=== PATIENT | male | born 1950 | race Caucasian/White ===

== ENCOUNTER 2024-08-21 14:19 | Outpatient (OUT) | payer MEDICARE, SELFPAY ==
--- NOTE | 2024-08-21 14:25 | CA_ITS ---
Patient Name: NELY MARY MR#: [id number] : 1950 Exam Date: 08/21/2024 Ordering Doctor: DR VINITA GUTIERREZ M.D. ECHOCARDIOGRAM REPORT PROCEDURE: CA ECHO DOPPLER COMPLETE INDICATIONS: Raynaud's syndrome COMPARISON: None. DESCRIPTION: COMPLETE ECHOCARDIOGRAM Real-time transthoracic echocardiography with 2D, M-mode, spectral and color flow Doppler performed. QUALITY: Technical quality was good. LEFT VENTRICLE: Normal chamber size. Normal left ventricular wall thickness. Global left ventricular systolic function is normal. No segmental wall motion abnormalities. Visual estimation of left ventricular ejection fraction is 60 %. LV EF: DIASTOLIC: Normal diastolic function. ATRIAL SEPTUM: It appears intact LEFT ATRIUM: Normal chamber size. RIGHT ATRIUM: Mild dilatation. RIGHT VENTRICLE: Normal chamber size. Normal right ventricular systolic function. TRICUSPID VALVE: Normal mobility and thickness. No stenosis with trivial regurgitation. No evidence of pulmonary hypertension. RVSP 28mmHg MITRAL VALVE: Normal mobility and thickness. No evidence of mitral valve stenosis. There is no mitral annular calcification. No mitral regurgitation. AORTIC VALVE: Normal trileaflet appearance. No visible sclerosis. Normal leaflet mobility. No evidence of aortic valve stenosis. Mild to moderate aortic regurgitation. AORTIC ROOT: Normal diameter and appearance. PULMONIC VALVE: Normal thickness and mobility. No stenosis. Moderate regurgitation. PERICARDIUM: Trivial pericardial effusion without hemodynamic significance. IVC: Collapes with inspirations. Normal size. PLEURA: CONCLUSION: Normal left ventricle cavity size and wall thickness, normal left ventricle systolic function without motion abnormalities, ejection fraction 60% Normal left ventricle diastolic function Normal right ventricle size and systolic function Normal right-sided pressures Mild to moderate aortic insufficiency Moderate pulmonary insufficiency Trace tricuspid regurgitation Trivial pericardial effusion without hemodynamic significance Adult Echocardiography Procedure Report Left Ventricle LVEDD (3.7 - 5.6 cm): 4.55 cm LVESD (2.2 - 4.0 cm): 3.16 cm LVIVS thickness (0.6 - 1.2 cm): 1.01 cm LVPW thickness (0.5 - 1.0 cm): 0.93 cm e': 0.10 m/s E - e': 5.74 LVOT Max Gradient: 2.71 mm[Hg] LVOT Area (cm2): 0.82 m/s Peak Velocity (LVOT): 0.82 m/s Mean Velocity (LVOT): 0.60 m/s LVOT Diameter 2.11 cm Left Ventricular Ejection Fraction: Left Atrium LA Volume Index (2D A2C): 25.21 ml/m2 Left Atrium Systolic Dimension: 3.08 cm Mitral Valve MV E to A Ratio: 1.06 MV Max Gradient: MV Mean Gradient: Mitral Valve A-Wave Peak Velocity: 0.55 m/s Mitral Valve E-Wave Peak Velocity: 0.59 m/s Cardiovascular Orifice Area: Right Ventricle RV Internal Diastolic Dimension: 3.61 cm Aorta AO Root Diam: 3.38 cm Ascending Ao Diam: 2.85 cm Aortic Valve AoV Area (Peak Bulmaro): 2.58 cm2, 2.58 cm2 AoV Area (VTI): 2.43 cm2, 2.43 cm2 Deceleration Bonner: 2.39 m/s2 Pressure Half-Time: 553.43 ms Peak Velocity(Antegrade Flow): 1.12 m/s Peak Gradient(Antegrade Flow): 4.99 mm[Hg] Mean Velocity(Antegrade Flow): 0.85 m/s Mean Gradient(Antegrade Flow): 3.20 mm[Hg] Velocity Time Integral: 27.25 cm Tricuspid Valve Peak Velocity (Regurgitant Flow): 2.63 m/s, 2.48 m/s, 2.30 m/s Peak Velocity: Pulmonic Valve Mean Gradient: 3.68 mm[Hg], 2.69 mm[Hg] Mean Velocity: 0.92 m/s, 0.75 m/s Peak Velocity: 1.20 m/s Peak Gradient: 6.18 mm[Hg], 5.33 mm[Hg] Right Atrium Right Atrium Systolic Pressure: 49.99 ml, 49.99 ml Dictated by: Cha Joshi MD on 08/21/2024 at 18:17 Approved by: Cha Joshi MD on 08/21/2024 at 18:28
== END 2024-08-21 14:20 | disposition home or self-care (01) ==
LOC: CARD 14:26
PROVIDERS: PCP Internal Medicine Interventional Cardiology; Visit Provider Internal Medicine Interventional Cardiology
DX: I73.00 Raynaud's syndrome without gangrene (principal); R68.89 Other general symptoms and signs
CPT/HCPCS: 93306